=== PATIENT | female | born 1955 | race Caucasian/White ===

== ENCOUNTER 2022-02-07 08:11 | Emergency (ER) | payer BC, OTHER ==
[~2022-02-07] VITALS: Ht 152.4 cm; Wt 70.0 kg
[2022-02-07 08:31] VITALS: BP 130/80
[2022-02-07] MEDS ORDERED: ACETAMINOPHEN 500 MG TAB PO ONE (09:00)
[2022-02-07] MEDS ORDERED: CEPH-510 PO (09:40)
[2022-02-07] MEDS ORDERED: ACET-1080 PO (09:40)
[2022-02-07] MEDS ORDERED: ONDANSETRON ODT 4 MG TAB PO ONE (09:45)
== END 2022-02-07 10:00 | disposition home or self-care (01) ==
LOC: ER 08:11 → EDBD 08:11 → ER 10:00
DX: S02.2XXA Fracture of nasal bones, initial encounter for closed fracture (principal); S16.1XXA Strain of muscle, fascia and tendon at neck level, initial encounter; S86.911A Strain of unspecified muscle(s) and tendon(s) at lower leg level, right leg, initial encounter; I10 Essential (primary) hypertension; V43.52XA Car driver injured in collision with other type car in traffic accident, initial encounter; Y93.89 Activity, other specified; Y92.410 Unspecified street and highway as the place of occurrence of the external cause; Y99.8 Other external cause status
CPT/HCPCS: 70160; 72040; 73590; 99284; Q0162